=== PATIENT | female | born 1950 | race Caucasian/White ===

== ENCOUNTER → 2019-09-21 10:05 | Outpatient (CLI) | payer MEDICARE, SELFPAY ==
[2019-09-22 08:31] LABS: Covid-19 Nasal PCR Sendout UK NOT DETECTED
== END ==
PROVIDERS: Visit Provider Internal Medicine Gastroenterology
DX: Z03.818 Encounter for observation for suspected exposure to other biological agents ruled out (principal)
CPT/HCPCS: U0003

== ENCOUNTER 2019-09-23 10:15 | Day surgery (SDC) | payer MEDICARE, SELFPAY ==
[2019-09-19 13:45] VITALS: BMI 23.1
[2019-09-23] VITALS (7 sets, daily range): BP systolic 142–176; BP diastolic 84–101; PULSE 93–121; RESP 18; TEMP 36.5–36.7; O2SAT 93–97
--- NOTE | 2019-09-23 12:38 | P.PN_ITS ---
[facility] Anesthesia Checklist - Patient Identification Patient Identification: Arm Band, Verbal (Name & ) - Structural Data Admitted From: Home Planned Operative Procedure/s: ERCP Consent for Planned Operative Procedure(s) Verified: Yes Verified Documents: Surgical Consent, History and Physical - NPO Status Verified Time NPO: 19:00 - Additional verifications Patient : No Anesthesia Reactions: No - Airway Assessment C-Spine Mobility Assessed: Yes TMJ Mobility Assessed: Yes Dentition: Partials (upper) - Neurological Assessment Level of Consciousness: Awake, Alert, Appropriate, Follows Commands Hx Seizures: No Numbness or tingling in extremities: No - Anesthesia Plan Anesthesia Risk discussed: Yes Anesthesia Plan: Verified ASA Class: II Anesthesia Type: MAC [facility] History I have reviewed the patient's past medical history: Yes Medical History: Reports:: Gastroesophageal Reflux Disease(GERD), Hyperlipidemia, Hypertension Denies:: Cancer, Diabetes Mellitus Type 1, Diabetes Mellitus Type 2, Internal Pacemaker, MRSA, Seizures *Have you ever received a pneumonia vaccine?: Yes *Have you received a flu vaccine this season?: Yes Other Medical History: Reports: Hypothyroidism Anesthesia experience/problems:: none Laterality Cases: Left: Lumpectomy Other Surgeries: Yes: Appendectomy, Cholecystectomy, Hysterectomy-Partial. No: Pacemaker Amputation: No Fractures: No - *Social History Smoking Status: Never smoker Alcohol Intake: never Substance Use Type: denies use *Occupational Status:: retired Housing: house Household Members: spouse *Travel in the last 8 weeks: None Family Hx:: Other (NA)
--- NOTE | 2019-09-23 12:39 | FL_ITS ---
PROCEDURE: FL ERCP CLINICAL INDICATION: ruq pain elevated liver enzymes COMPARISON: No exams were available for comparison FINDINGS: Fluoroscopy time: 1 minutes and 33 seconds Select images are submitted from the ERCP showing the endoscope in place. Contrast is injected into the common bile duct where there are multiple varying sized filling defects which could be due to common duct stones or air bubbles. Please correlate with fluoroscopic findings. The right biliary ducts are not completely opacified. The left common biliary ducts have an unremarkable appearance. IMPRESSION: Multiple filling defects in the common bile duct which could be due to stones or air bubbles Dictated by: Viraj Jama MD 09/25/2019 15:14 Electronically signed by Viraj Jama MD in [place] 09/25/2019 15:14
--- NOTE | 2019-09-23 12:57 | HMH.PROC ---
[facility] Procedure Note Procedure Note:: ERCP procedure Report: Endoscopic retrograde cholangiopancreatography with sphincteroplasty/TTS balloon dilation and submucosal injection (epinephrine) Endoscopist: Santy Barros II, MD Referring Physician: Tricia Morel MD ([facility]) Date of Procedure: September 23, 2019 Equipment: Olympus 180 side viewing endoscope duodenoscope Sedation: MAC sedation Indication: Mrs. Ramires is a 68-year-old female with right upper quadrant abdominal pain radiating into the shoulder blades. She had prior cholecystectomy. 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 She has had improvement of her pain each time with biliary decompression. The patient also has a long history of IBS with constipation. She has taken Motegrity. She was not taking the MiraLAX plus Konsyl but rather [id number] Perdiem. She did have a recent MRCP on July 05, 2019. Her main pancreatic duct and intra-and extrahepatic biliary system were normal in appearance. The patient does take a number of therapies for chronic reflux and dyspepsia including Nexium, Tagamet, sucralfate, promethazine, Creon and buspirone. The patient cannot take Reglan because of her Parkinson's disease. She did not have any improvement with Xifaxan. She did have panendoscopy in June 2018. Procedure: Prior to the procedure, a history and physical exam was performed, and patient's medications and allergies were reviewed. The risks, benefits and alternatives of the sedation and procedure were discussed with the patient. All questions were answered and informed consent was obtained. The patient was brought to the fluoroscopic radiology room. Patient identification and proposed procedure were verified by the physician and the nurse. The patient was placed in a swimmer's position between left lateral decubitus and prone position and the scope was passed under direct vision. Throughout the procedure, the patient's blood pressure, pulse, and oxygen saturations were monitored continuously. The ERCP was accomplished without difficulty. The patient tolerated the procedure well. Findings: The side-viewing duodenal scope was passed directly into the upper esophagus and advanced to the second portion of the duodenum. There was mild reactive gastropathy. The ampulla was well visualized. The pancreatic duct was briefly cannulated with a guidewire but no pancreatogram was performed and no contrast was injected. The common bile duct was then selectively cannulated with a guidewire. There had been a prior full sphincterotomy with no further intra-mucosal segment of the CBD identifiable. There was still some evidence of mild ampullary stenosis. The cholangiogram did show a 9 to 10 mm common bile duct with normal filling of the intrahepatic biliary system. There was some intraductal filling defects consistent with pneumobilia. There were no stones identifiable. There was delayed drainage of contrast and bile. No further sphincterotomy was performed. Next, a 10 mm TTS hydrostatic balloon was used to do sphincteroplasty at the level of the ampulla. After the balloon was dilated and then deflated, there was a moderate amount of heme/blood identified exuding from the ampulla. Next, the area was examined with fluid and the ERCP cannulating sphincterotome was utilized to inject 1-10,000 epinephrine at the level of the ampulla with eventual hemostasis. This appeared to be venous bleeding. After hemostasis, no further therapeutic measures were taken and the procedure was ended. Impression: 1. 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 I would recommend avoidance of anticoagulation and reduction of any physical exercise for at
== END 2019-09-23 14:31 | disposition home or self-care (01) ==
LOC: OUTP 10:19
PROVIDERS: PCP Pain Medicine Pain Medicine; Visit Provider Internal Medicine Gastroenterology
DX: R10.11 Right upper quadrant pain (principal); K83.09 Other cholangitis; K83.1 Obstruction of bile duct; I10 Essential (primary) hypertension; Z79.899 Other long term (current) drug therapy
CPT/HCPCS: 43277; 74330; C1726; J2405